=== PATIENT | male | born 1955 | race Caucasian/White ===

== ENCOUNTER 2023-04-07 07:26 | Emergency (ER) | payer OTHER ==
[2023-04-07] MEDS ORDERED: Lidocaine 1% PF 5 ML VIAL ONE (07:58)
[2023-04-07] MEDS ORDERED: Triple Antibiotic Oint 1 GM Packet ONE (08:26)
== END 2023-04-07 08:25 | disposition home or self-care (01) ==
LOC: CSHERS 07:26
DX: S61.412A Laceration without foreign body of left hand, initial encounter (principal); I10 Essential (primary) hypertension; F17.220 Nicotine dependence, chewing tobacco, uncomplicated; W26.0XXA Contact with knife, initial encounter
CPT/HCPCS: 12001; 99282